=== PATIENT | male | born 2000 | race Caucasian/White ===

== ENCOUNTER 2021-01-07 12:45 | Emergency (ER) | payer OTHER, BC, SELFPAY ==
--- NOTE | ~2021-01-07 | XR_ITS ---
EXAMINATION: XR elbow RT min 3V DATE: 01/07/2021 13:28 INDICATION: Right elbow injury. TECHNIQUE: 4 views of right elbow were obtained. COMPARISON: None. FINDINGS: Bone alignment is normal. There is a nondisplaced fracture of the radial head involving the articular surface. Joint spaces are normal. There is a large elbow joint effusion. IMPRESSION: 1. Nondisplaced radial head fracture. 2. Large elbow joint effusion. Reviewed, dictated and finalized at location A. STANT SALES DIRECTOR
[2021-01-07 13:06] VITALS: BP 146/79; PULSE 98; RESP 18; TEMP 36.6; O2SAT 100
--- NOTE | 2021-01-07 14:51 | ED.GENADULT ---
HPI - General Adult General Chief complaint: Extremity Injury, Upper Stated complaint: right elbow injury Time Seen by Provider: 01/07/21 12:53 Source: patient Mode of arrival: ambulatory Limitations: no limitations History of Present Illness HPI narrative: Patient presents with chief complaint of right elbow pain that began last night after slipping on the ice while at work and hitting the elbow. Patient reports he has decreased range of motion but when the elbow is bent in a 90 degree position there is no pain or discomfort. Patient denies any pain proximally or distally to the elbow. Patient denies prior fracture. Patient denies any chronic medical conditions or medications. Related Data Allergies Allergy/AdvReac Type Severity Reaction Status Date / Time No Known Allergies Allergy Verified 08/22/19 06:50 Review of Systems Review of Systems: Narrative: CONSTITUTIONAL: Denies fever, chills, or sweats. EYES: Denies visual changes, redness, or discharge. ENT: Denies rhinorrhea, congestion, sore throat, or otalgia. CARDIOVASCULAR: Denies chest pain, palpitations, or edema. RESPIRATORY: Denies cough or dyspnea. GASTROINTESTINAL: Denies abdominal pain, nausea, vomiting, or diarrhea. GENITOURINARY: Denies dysuria or hematuria. SKIN: Denies rash or itching. MUSCULOSKELETAL: Denies back pain, joint pain, or myalgia. NEUROLOGIC: Denies headache, numbness, dizziness, or weakness. PSYCHIATRIC: Denies anxiety or depression. Exam Narrative: Exam Narrative: GENERAL: Well-appearing, well-nourished, and in no acute distress. HEAD: Normocephalic, atraumatic. EYES: PERRLA and EOMI. CHEST: Clear to auscultation. No respiratory distress. No wheezes rales or rhonchi HEART: Regular rate and rhythm. No murmur heard. Normal peripheral pulses. EXTREMITIES: Swelling noted to the right elbow. No ecchymosis noted. Tenderness with palpation to the radial aspect near the radial head. Patient reports decreased flexion and extension. Patient report comfort with 90 degree position SKIN: Warm, dry, no rash. NEURO: No focal deficits. Alert and oriented x3. PSYCH: Normal mood and affect. Course Vital Signs Vital signs: Vital Signs Temperature 98 F 01/07/21 13:06 Pulse Rate 98 01/07/21 13:06 Respiratory Rate 18 01/07/21 13:06 Blood Pressure 146/79 H 01/07/21 13:06 Pulse Oximetry 100 01/07/21 13:06 Temperature 98 F 01/07/21 13:06 Pulse Rate 98 01/07/21 13:06 Respiratory Rate 18 01/07/21 13:06 Blood Pressure 146/79 H 01/07/21 13:06 Pulse Oximetry 100 01/07/21 13:06 Procedures Orthopedic Splinting/Casting Injury #1: Side: right Upper Extremity Injury Location: elbow Splint: customized in ED OCL: long arm Pre-Procedure Neuro Vascular Exam: normal Post-Procedure Neuro Vascular Exam: normal Other Orthopedic Equipment: other (sling) Medical Decision Making MDM Narrative Medical decision making narrative: Patient has nondisplaced radial head fracture. Patient placed in long-arm splint. Patient instructed to follow-up with orthopedics. Patient is RICE instructions, Tylenol or Motrin Motrin for discomfort. Return to emergency department if he develops any emergent symptoms. Differential Diagnosis Differential Diagnosis: Fracture, sprain, strain Vital Signs Vital Signs: Vital Signs Temperature 98 F 01/07/21 13:06 Pulse Rate 98 01/07/21 13:06 Respiratory Rate 18 01/07/21 13:06 Blood Pressure 146/79 H 01/07/21 13:06 Pulse Oximetry 100 01/07/21 13:06 Temperature 98 F 01/07/21 13:06 Pulse Rate 98 01/07/21 13:06 Respiratory Rate 18 01/07/21 13:06 Blood Pressure 146/79 H 01/07/21 13:06 Pulse Oximetry 100 01/07/21 13:06 Imaging Data Radiologist's impression: ITS Impressions Elbow X-Ray 01/07/21 13:29 IMPRESSION: 1. Nondisplaced radial head fracture. 2. Large elbow joint effusion. Discharge Plan Discharge Clini
== END 2021-01-07 15:28 | disposition home or self-care (01) ==
PROVIDERS: Emergency Provider Emergency Medicine
DX: S52.124A Nondisplaced fracture of head of right radius, initial encounter for closed fracture (principal); W00.9XXA Unspecified fall due to ice and snow, initial encounter
CPT/HCPCS: 29105; 73080; 99284; A4565

== ENCOUNTER 2021-11-05 19:11 | Emergency (ER) | payer BC, SELFPAY ==
--- NOTE | ~2021-11-05 | CT_ITS ---
EXAMINATION: CT chest high resolution wo de DATE: 11/06/2021 02:21 INDICATION: Cough and shortness of breath TECHNIQUE: Computed tomography (CT) of the chest was performed without intravenous contrast. The dose -length product (DLP) was 362.78 mGy-cm. Automated exposure control and iterative reconstruction tech Everypostque were employed. COMPARISON: None FINDINGS: There are minimal dependent airspace opacities of the lower lobes. No pleural effusion or p neumothorax is identified. There is a small sliding hiatal hernia. No pathologically enlarged thoraci c lymph nodes are identified. The heart size is normal. Minimal bilateral gynecomastia is noted. Tria ngular soft tissue density in the anterior mediastinum is consistent with residual thymus. There is a 6.2 cm cyst of the right kidney upper pole. IMPRESSION: 1. Minimal dependent airspace opacities of the lower lobes, likely atelectasis. Early pneumonia of th e right lower lobe is not excluded. Reviewed, dictated and finalized at location A. LAR SET CREW MEMBER IMPRESSION: 1. Minimal dependent airspace opacities of the lower lobes, likely atelectasis. Early pneumonia of the right lower lobe is not excluded.
--- NOTE | ~2021-11-05 | XR_ITS ---
EXAMINATION: XR chest 1V portable EXAM DATE: 11/05/2021 23:37 INDICATION: Cough X 10 years, new onset shortness of breath. TECHNIQUE: Portable AP frontal chest x-ray was obtained. There is no prior study for comparison. FINDINGS: The lungs are clear. There are no pleural effusions. The cardiomediastinal silhouette is within normal limits. There is no pneumothorax suspected. The bones and soft tissues are unremarkab le. IMPRESSION: No acute cardiopulmonary findings. Reviewed, dictated and finalized at location A. ENDBAND CUTTER
[2021-11-05 19:33] VITALS: BP 132/73; PULSE 126; RESP 20; TEMP 37.3; O2SAT 99
[2021-11-05 23:39] VITALS: BP 137/89; PULSE 115; RESP 20; O2SAT 97; O2SAT 98
[2021-11-05] MEDS: SODIUM CHLORIDE 0.9% IV 1,000 ML 999 ML IV CONT (23:53)
[2021-11-06 00:24] LABS: Hematocrit 46.7 % (42.0-52.0); Hemoglobin 16.3 g/dL (14.0-18.0); Mean Corpuscular HGB Conc 34.9 g/dl (32-36); Mean Corpuscular Hemoglobin 29.6 pg (26-34); Mean Corpuscular Volume 84.9 fl (80-100); Mean Platelet Volume 9.8 fl (7.4-10.4); Platelet Count Result 319 k/mm3 (150-375); Red Cell Distribution Width 11.9 % (11.5-14.5); White Blood Count 24.9 K/mm3 (4.5-10.0)
--- NOTE | 2021-11-06 00:27 | ED.SOB ---
HPI - SOB/Dyspnea General Chief Complaint: Shortness of Breath/Dyspnea Stated Complaint: really bad cough . SOB. COVID + Time Seen by Provider: 11/05/21 23:27 Source: patient and RN notes reviewed Mode of arrival: ambulatory Limitations: no limitations History of Present Illness HPI Narrative: This is 20 year old female who presents for evaluation of shortness of breath. Patient developed symptoms of COVID 1 week ago and he took an at home test which was positive. He started with sinus congestion, cough, headache. His headache and sinus congestion have resolved. He has continued to have nonproductive cough, and he developed shortness of breath today. He has also noticed an elevated heart rate. He only has chest pain with cough. He has had some nausea and intermittent vomiting. Denies fever or chills. He received first 2 episodes of covid vaccination earlier in the year but has not received booster. Denies previous medical problems. Related Data Allergies Allergy/AdvReac Type Severity Reaction Status Date / Time No Known Allergies Allergy Verified 11/05/21 23:42 Review of Systems Review of Systems: All systems reviewed & are unremarkable except as noted in HPI and below PMFSH Past Medical History Medical History Chills Common cold Fever Family History Family History (Updated 01/09/21 @ 11:28 by Maegan Basurto RT(R)) Other Kidney stone Social History Social History (Updated 01/09/21 @ 11:29 by Maegan Basurto RT(R)) Smoking status: Never smoker Alcohol intake: never Substance use: never Substance use type: does not use Gender identity (if verbalized by the patient): Male Exam Const: General: no acute distress and alert Orientation/consciousness: patient oriented x3 HENMT: Head: normocephalic and atraumatic Ears: TM's normal bilaterally Throat: posterior oropharynx normal Eyes: EOM: EOMs intact bilaterally Resp: Effort & Inspection: normal respiratory effort and no retractions Auscultation: clear to auscultation bilaterally Cardio: Rate: tachycardic Rhythm: regular rhythm Heart sounds: no murmurs GI: GI Palp: Yes Soft to palpation, No Tenderness to palpation present (GI) and No Guarding due to palpation present (GI) Auscultation: normal bowel sounds Skin: General skin exam: normal color Rashes: no rashes Neuro: General: patient oriented x3, moves all extremities and CN's II-XI intact bilaterally Psych: Mental Status: mental status grossly normal Affect: normal affect Course Reevaluation(s) Reevaluation #1: PAtient actually appears to be much improved. HR improved. he does have leukocytosis. CT shows some basilar infiltrates. Will treat as infectious. He will follow up with PCP regarding right renal cyst. Date: 11/06/21 Time: 04:11 Vital Signs Vital signs: Vital Signs Temperature 99.1 F 11/05/21 19:33 Pulse Rate 126 H 11/05/21 19:33 Respiratory Rate 20 11/05/21 19:33 Blood Pressure 132/73 11/05/21 19:33 Pulse Oximetry 99 11/05/21 19:33 Temperature 99.1 F 11/05/21 19:33 Pulse Rate 90 11/06/21 04:56 Respiratory Rate 20 11/06/21 04:56 Blood Pressure 123/69 11/06/21 04:56 Pulse Oximetry 97 11/06/21 04:56 MDM - SOB/Dyspnea Lab Data Attestation: I reviewed the patient's lab results. Result diagrams: 11/05/21 23:52 11/06/21 00:53 Labs: Lab Results 11/05/21 11/05/21 11/05/21 Range/Units 23:52 23:52 23:52 WBC 24.9 H (4.5-10.0) K/mm3 RBC 5.50 (4.6-6.20) M/mm3 Hgb 16.3 (14.0-18.0) g/dL Hct 46.7 (42.0-52.0) % MCV 84.9 (80-100) fl MCH 29.6 (26-34) pg MCHC 34.9 (32-36) g/dl RDW 11.9 (11.5-14.5) % Plt Count 319 (150-375) k/mm3 MPV 9.8 (7.4-10.4) fl Immature Gran % (Auto) Not Reportable Neut % (Auto) Not Reportable Lymph % (Auto) Not Reportable [place] % (Auto) Not
[2021-11-06 00:36] LABS: Lactic Acid Reflex 2.9 mmol/L (0.7-2.1)
[2021-11-06 00:37] LABS: Partial Thromboplastin Time 26.9 SECONDS (22.3-36.8); Prothrombin Time 12.9 Seconds (11.1-14.7)
[2021-11-06 01:01] LABS: Atypical Lymphocytes Present; Band Neutrophils Percent 7 % (0-6); Lymphocytes Absolute Manual 1.24 K/mm3 (1.1-4.5); Monocytes Absolute Manual 0.99 K/mm3 (0.1-0.90); Monocytes Percent Manual 4 % (3-9); Neutrophils Absolute Manual 22.65 K/mm3 (1.3-6.7); Neutrophils Percent Manual 84 % (46-73); Platelet Estimate Adequate (Adequate); Total Cells Counted 100
[2021-11-06 01:36] LABS: Alanine Aminotransferase 34 U/L (4-50); Alkaline Phosphatase 49 U/L (38-126); Anion Gap 9 mmol/L (8-16); Aspartate Amino Transferase 25 U/L (17-59); Bilirubin,Total 0.9 mg/dL (0.2-1.3); Blood Urea Nitrogen 13 mg/dL (9-20); Calcium 8.7 mg/dL (8.4-10.2); Carbon Dioxide 25 mmol/L (22-30); Chloride 103 mmol/L (98-107); Estimated CRCL calculation 135 ml/min; Estimated Glomerular Filt Rate > 60; Glucose 107 mg/dL (65-110); Potassium 4.1 mmol/L (3.4-5.0); Sodium 137 mmol/L (137-145)
[2021-11-06 01:39] LABS: D Dimer < 0.22 ug/mL (<0.48)
[2021-11-06 01:54] VITALS: BP 125/78; PULSE 81; RESP 20; O2SAT 97
[2021-11-06 03:22] LABS: Reflex Lactic Acid Yes or No Add Lactic
[2021-11-06] MEDS: SODIUM CHLORIDE 0.9% IV 1,000 ML 999 ML IV CONT (03:39)
[2021-11-06 03:48] LABS: Add Urine Microscopic? NO; Appearance Urine Clear (Clear); Bilirubin Urine Negative (Negative); Blood Urine Negative (Negative); Color Urine Yellow (Yellow); Glucose Urine UA Negative (Negative); Ketones Urine Negative (Negative); Leukocyte Esterase Ur Negative LEU/UL (Negative); Nitrate Urine Negative (Negative); Protein Urine Negative (Negative); Specific Grav Ur 1.009 (1.001-1.035); Urobilinogen Urine Negative mg/dL (<2.0)
[2021-11-06 04:11] LABS: Troponin I < 0.012 ng/mL (0.000-0.034)
[2021-11-06 04:18] LABS: Lactic Acid 1.6 mmol/L (0.7-2.1)
[2021-11-06] MEDS: DOXYCYCLINE HYCLATE 100 MG TABLET PO (04:21)
[2021-11-06 04:23] VITALS: BP 128/76; PULSE 102; RESP 20; O2SAT 97
[2021-11-06 04:56] VITALS: BP 123/69; PULSE 90; RESP 20; O2SAT 97
== END 2021-11-06 04:58 | disposition home or self-care (01) ==
PROVIDERS: Emergency Provider General Practice; PCP Internal Medicine
DX: U07.1 COVID-19 (principal); J18.9 Pneumonia, unspecified organism; N28.1 Cyst of kidney, acquired
CPT/HCPCS: 36415; 71045; 71250; 80053; 81003; 83605; 84484; 85025; 85380; 85610; 85730; 86140; 96361; 96365; 99284; A9270; J0696; J7030

== ENCOUNTER 2025-02-01 18:20 | Emergency (ER) | payer OTHER, SELFPAY ==
--- NOTE | ~2025-02-01 | CT_ITS ---
CLINICAL INDICATION: Left lower quadrant pain COMPARISON: None. Reference is made to a CT examination of the chest dated 11/06/2021 TECHNIQUE: Multiple contiguous axial images of the abdomen and pelvis were performed following the ad ministration of with 100 mL Omnipaque-350 intravenous contrast The dose-length product (DLP) was 1635.99 mGy-cm. Automated exposure control and iterative reconstruction technique were employed. FINDINGS/OBSERVATIONS: Visualized lower thorax: The bilateral lung bases are clear. The heart is enlarged, without pericardial effusion. Small hiatal hernia is present. Liver: The liver demonstrates homogeneous enhancement and is enlarged measuring 20 cm in longitudinal dimens ion. Gallbladder and biliary system: The gallbladder is only minimally distended, and otherwise unremarkable. Pancreas: The pancreas enhances homogeneously without ductal dilatation. Spleen: The spleen enhances homogeneously and is not enlarged measuring 8 cm in longitudinal dimension. Kidneys: 6.5 cm well-circumscribed fluid attenuation focus exophytic from the right kidney's upper po le, unchanged from [address] 5 mm calculus within the lower pole of the left kidney. The remainder of the bilateral kidneys otherwise enhance symmetrically without hydronephrosis or anay tional renal calculi. Adrenal glands: Unremarkable. Gastrointestinal tract: Mural thickening and surrounding inflammatory changes identified within the distal mall bowel which a buts the left lateral rectus muscle in its descent into the pelvis, likely the source of patient's di scomfort. No bowel obstruction is appreciated. No drainable fluid collection is noted. No perforation is present. Appendix: The air-filled appendix is of normal caliber (axial series, images 133 through 149). Vasculature: Unremarkable. Lymph nodes: Scattered nonpathologically enlarged lymph nodes within the mesentery, a nonspecific finding in a pat ient of this age. Pelvic structures: The bladder is minimally distended, and otherwise unremarkable. The prostate gland is not enlarged. Body wall and musculoskeletal: No umbilical or inguinal hernias No significant degenerative disease within the lower thoracic or lumbosacral spine. IMPRESSION: Findings which in the appropriate clinical scenario suggest the presence of inflammatory bowel diseas e, versus a focal enteritis. Follow-up to resolution is recommended as is GI consultation. Reviewed, dictated and finalized at location A. ATIENT SCHEDULER IMPRESSION: Findings which in the appropriate clinical scenario suggest the presence of inf lammatory bowel disease, versus a focal enteritis. Follow-up to resolution is r ecommended as is GI consultation.
--- OUTSIDE RECORDS SUMMARY | 2025-02-01 18:22 | XMS_ITS | Clinical Summary ---
Author Organization [facility] Address [address] [place] [address] Care Team Providers Care Water Resource Consultant Name Role Phone Unavailable Primary Care Provider Unavailabl e Source Comments [facility],non-owned Affiliates and Associated Physician Practices is amultiple site organization consisting of ambulatory clinics and hospital sitesin [place], [place], [place] and [place]. This disclosure is being madepursuant to the Care Everywhere program and may not contain all information available regarding this patient. Last updated 18.[facility] Allergies No known active allergies Medications * Be aware that medications may not be up to date on this document. Alwaysverify current medications with the patient. Medication Sig Dispensed Refills Start Date End Date Status fluticasone propionate (FLONASE) 50 MCG/ACT nasal spray [place] 2 sprays into each nostril once daily 1 bottles 1 05/12/2018 Active benzonatate (TESSALON) 200 MG capsuleIndications:C ough Take 1 capsule by mouth 3 times daily as needed for Cough Reasons: Cough 20 capsule 05/12/2018 Active Active Problems Problem Noted Date Diagnosed Date BMI (body mass index), pedia tric, 85% to less than 95% for age 1211/19/2014 Immunizations Name Administration Dates Next Due DTaP VACCINE IM (6wk-6yrs) 03/03/2006,,06/12/2001,04/11/2001, 02/09/2001 HEP A PEDS 2 DOSE 05/04/2012,03/03/2006 HEP B VACCINE, PED/ADOL 09/12/2001,01/12/2001, HIB BOOSTER 06/11/2002,06/12/2001,04/11/2001 ,02/09/2001 INFLUENZA VACCINE 09/19/2008 MENINGOCOCCAL CONJUGATE (MCV4P) 05/02/2018,06/11 MMR 03/03/2006,12/12/2001 PNEUMOCOCCAL CONJ, PEDS 06/11/2002,06/12/2001,,02/09/2001 POLIO IPV 03/03/2006,03/12/2002,04/11/2001 ,02/09/2001 TDAP (7yrs+) 05/04/2012 VARICELLA 05/04/2012,03/12/2002 Family History Medical History Relation Name Comments Hypercholesterolemia Mother Relation Name Status Comments Mother Social History Tobacco Use Types Packs/Day Years Used Date Smoking Tobacco: Never Smokeless Tobacco: Never Alcohol Use Standard Drinks/Week Comments Not Asked 0 (1 standard drink = 0.6 oz pur e alcohol) Sex and Gender Information Value Date Recorded Sex Assigned at Not on file Gender Identity Not on file Sexual Orientation Not on file Last Filed Vital Signs Vital Sign Reading Time Taken Comments Blood Pressure 114/64 06/11/2015 8:57 AM CDT Pulse 68 06/11/2015 8:57 AM CDT Temperature 36.9 C (98.5 F) 12/29/2018 3:53 PM CHILD AND YOUTH PROGRAM ASSISTANT Respiratory Rate - - Oxygen Saturation - - Inhaled Oxygen Concentration - - Weight 85.7 kg (189 lb) 12/29/2018 3:53 PM CHILD AND YOUTH PROGRAM ASSISTANT Height 184.2 cm (6' 0.5 ) 05/02/2018 3:35 PM CDT Body Mass Index - - Plan of Treatment Health Maintenance Due Date Last Done Comments HIV SCREENING 2015 HPV VACCINE (1 - Male 3-dose series) 2015 HEPATITIS C SCREENING 12/07/2018 DTAP/TDAP/TD VACCINES (7 - Td or Tdap) 05/04/2022 05/04/2012, 03/03/2006, 06/11/2002, Additional history exists COVID-19 VACCINE ( season) 2024 INFLUENZA VACCINE (#1) 2024 09/19/2008 DEPRESSION SCREENING 11/28/2024 ZOSTER VACCINE (1 of 2) 2050 HEPATITIS B VACCINE Completed 09/12/2001, 01/12/2001, 2000 HIB VACCINE Completed 06/11/2002, 05/28, 04/11/2001, Additional history exists PNEUMOCOCCAL VACCINE Completed 06/11/2002, 06/12/2001, 04/11/2001, Additional history exists MENINGOCOCCAL VACCINE Completed 05/02/2018, 015 MENINGOCOCCAL (Group B) VACCINE Aged Out No longer eligible based on patient's age to complete this topic Goals Goal Patient Goal Type Associated Problems Recent Progress Patient-Stated? Author Exercise 3X per week (30 min per time) Exercise On track( 3:53 PM CHILD AND YOUTH PROGRAM ASSISTANT) No Heidy Ernst RN Note: Caring for Your Overweight Child Get Moving: It is recommended that children and teens get physical activity for at least 1 hour per day on most (or better yet, all) days of the week. That may sound like a lot, especially if your child is not getting any physical activity now. But physical activity means more than exercise. It can mean playing games in the backyard, or washing the car. It can mean picking up leaves, or walking the dog. Add the healthy habit of physical activity to your family s schedule. When children take off weight through dieting alone, 80 percent of the loss is from fatty tissue and 20 percent is from muscle. Adding weight-resistance training to an exercise routine preserves the muscle tissue. Virtually every ounce dropped comes from fat. Once an adolescent meets his goal, regular exercise is essential for maintaining the desired weight. Where can I go for more information? [employer] ( ) www.aap.org HealthyChildren.org www.healthychildren.org U.S. Department of Health and Human Services www.hhs.gov Website and free downloadable michelle for smartphones: http://www.True&Co/ Use safety retraint in car Lifestyle On track( 3:53 PM CHILD AND YOUTH PROGRAM ASSISTANT) Mayi Leija MD SALAS MONTEMAYOR Personal/Family [address] [place] [id number]
--- OUTSIDE RECORDS SUMMARY | 2025-02-01 18:22 | XMS_ITS | Patient Health Summary ---
Author Organization [facility] Address [address] [place] [address] Care Team Providers Care Chief Diversity Officer Name Role Phone Unavailable Primary Care Provider Unavailabl e Note from [facility],non-owned Affiliates and Associated Physician Practices is amultiple site organization consisting of ambulatory clinics and hospital sitesin [place], [place], [place] and [place]. This disclosure is being madepursuant to the Care Everywhere program and may not contain all information available regarding this patient. Last updated 18.[facility] [employer] Allergies No known active allergies Medications * Be aware that medications may not be up to date on this document. Alwaysverify current medications with the patient. * fluticasone propionate (FLONASE) 50 MCG/ACT nasal spray(Started 05/12/2018) [place] 2 sprays into each nostril once daily 1 refill remaining * benzonatate (TESSALON) 200 MG capsule(Started 05/12/2018) Take 1 capsule by mouth 3 times daily as needed for Cough Reasons: Cough Active Problems Problem Noted Date Diagnosed Date BMI (body mass index), pedia tric, 85% to less than 95% for age 1211/19/2014 Immunizations * DTaP VACCINE IM (6wk-6yrs)(Given 03/03/2006, 06/11/2002, 06/12/2001, 04/11/2001, 02/09/2001) * HEP A PEDS 2 DOSE(Given 05/04/2012, 03/03/2006) * HEP B VACCINE, PED/ADOL(Given 09/12/2001, 01/12/2001, 2000) * HIB BOOSTER(Given 06/11/2002, 06/12/2001, 04/11/2001, 02/09/2001) * INFLUENZA VACCINE(Given 09/19/2008) * MENINGOCOCCAL CONJUGATE (MCV4P)(Given 05/02/2018, 06/11/2015) * MMR(Given 03/03/2006, 12/12/2001) * PNEUMOCOCCAL CONJ, PEDS(Given 06/11/2002, 06/12/2001, 04/11/2001, 02/09/2001) * POLIO IPV(Given 03/03/2006, 03/12/2002, 04/11/2001, 02/09/2001) * TDAP (7yrs+)(Given 05/04/2012) * VARICELLA(Given 05/04/2012, 03/12/2002) Social History Tobacco Use Types Packs/Day Years [...] 36.9 C (98.5 F) 12/29/2018 3:53 PM ASSOCIATE BROKER Respiratory Rate - - Oxygen Saturation - - Inhaled Oxygen Concentration - - Weight 85.7 kg (189 lb) 12/29/2018 3:53 PM ASSOCIATE BROKER Height 184.2 cm (6' 0.5 ) 05/02/2018 3:35 PM CDT Body Mass Index - - Procedures * IMAGING/RADIOLOGY/XRAY RESULTS ORDER(Performed 11/05/2021) * LAB RESULTS ORDER(Performed 11/05/2021) * GLUCOSE(Performed 06/11/2015) Performed for BMI (body mass index), pediatric, 95-99% for age * LIPID PROFILE(Performed 06/11/2015) Performed for BMI (body mass index), pediatric, 95-99% for age * TSH(Performed 01/09/2009) * T4 FREE(Performed 01/09/2009) Results * LAB RESULTS ORDER (11/05/2021) 11/05/2021 Narrative 11/05/2021 Ordered by an unspecified provider. Scanned Document LAB - THERAPEUTIC DR UG MONITORING ORDERABLES * IMAGING RADIOLOGY XRAY RESULTS ORDER (11/05/2021) Anatomical Region Laterality Modality Other 11/05/2021 Narrative 11/05/2021 Ordered by an unspecified provider. Scanned Document IMAGING * GLUCOSE (06/11/2015 9:42 AM CDT) Glucose 97 65 - 99 mg/dL [facility] Comment: Fasting reference interval REPORT COMMENT: FASTING:YES Test Performed at: [facility] [place] [id number] MONIQUE ANDRADE DO,MPH Blood specimen (specimen) BLOOD SPECIMEN / Unknown 06/11/2015 9:42 AM CDT 06/11/2015 9:42 AM CDT Mayi Tellez MD LAB - CHEMISTRY MICHAEL BROTHERS [facility] Organization Address City/State/ZIP Co de Phone Number [facility] [address] [place] [address] * LIPID PROFILE (LIPID PANEL) (06/11/2015 9:42 AM CDT) Cholesterol 144 125 - 170 mg/dL [facility] Comment: Test Performed at: [place] [address] [id number] MONIQUE ANDRADE DO,MPH HDL Cholesterol 46 38 - 76 mg/dL [facility] Triglycerides 49 33 - 129 mg/dL [facility] LDL Calculated 88 <110 mg/dL (calc) [facility] Comment: Desirable range <100 mg/dL for patients with CHD or diabetes and <70 mg/dL for diabetic patients with known heart disease. CHOL/HDLC RATIO 3.1 < OR = 5.0 (calc) [facility] Non HDL Cholesterol 98 <120 mg/dL (calc) [facility] Blood specimen (specimen) BLOOD SPECIMEN / Unknown 06/11/2015 9:42 AM CDT 06/11/2015 9:42 AM CDT Mayi Tellez MD LAB - CHEMISTRY MICAHEL BROTHERS Performing Organization Address [facility] Co de Phone Number [facility] [address] [place] [address] * TSH (01/09/2009 10:41 AM ASSOCIATE BROKER) TSH 1.22 0.50 - 4.30 mIU/L [facility] Comment: Test Performed at: [email or web address] [id number] MONIQUE MISTRY MD 01/09/2009 10:4 1 AM ASSOCIATE BROKER 01/09/2009 10:06 PM ASSOCIATE BROKER Mayi Tellez MD LAB - CHEMISTRY MICHAEL BROTHERS Performing Organization Address [facility] Co de Phone Number [facility] [address] [place] [address] * T4 FREE (01/09/2009 10:41 AM ASSOCIATE BROKER) T4 Free 1.3 0.9 - 1.6 ng/dL [facility] Comment: Test Performed at: [facility] [place] [id number] MONIQUE MISTRY MD 01/09/2009 10:4 1 AM ASSOCIATE BROKER 01/09/2009 10:06 PM ASSOCIATE BROKER Mayi Tellez MD LAB - CHEMISTRY MICHAEL BROTHERS Performing Organization Address [facility] Co de Phone Number [facility] [address] [place] [address]
--- OUTSIDE RECORDS SUMMARY | 2025-02-01 18:22 | XMS_ITS | Clinical Summary ---
Author Organization [facility] Address [facility] [place] [address] Care Team Providers Care Auto Winder Name Role Phone Matt Bethea MD Primary Care Provider [phone] Allergies No known active allergies Medications albuterol sulfate HFA 108 (90 Base) MCG/ACT inhaler FOUR TIMES DAILY 11/06/2021 Active doxycycline hyclate 100 MG capsule Take 100 mg by mouth 2 (two) times daily. Active Active Problems No known active problems Immunizations Name Administration Dates Next Due Dtap (Acel-Immune) 03/03/2006,,06/12/2001,2000,02/09/2001 Hepatitis A (Havrix [address]) 05/04/2012, 006 Hepatitis B Pediatric 09/12/2001,01/12/2001,11/28 Hib (Prohibit) 06/11/2002,,04/11/2001,2000 Influenza (Generic) 09/19/2008 MMR (MMRII) 03/03/2006,12/12/2001 MODERNA COVID-19 (12+) MRNA, LNP-S, PF, 100 MCG/ 0.5 ML DOSE 2020 Menactra 05/02/2018,06/11/2015 Pneumococcal Vaccine 06/11/2002,06/12/20,04/11/2001,2000 Polio IPV (Ipol) 03/03/2006,,04/11/2001,2000 Tdap (Generic) 05/04/2012 Varicella (Varivax) 05/04/2012,03/12/2002 Social History Tobacco Use Types Packs/Day Years Used Date Smoking Tobacco: Never Smokeless Tobacco: Never Tobacco Cessation:Counseling Given: No Alcohol Use Standard Drinks/Week Comments Never 0 (1 standard drink = 0.6 oz pur e alcohol) AUDIT-C Answer Date Recorded Q1: How often do you have a drink containing alc ohol? Never 03/10/2021 Average Number of Drinks Not on file 021 Frequency of Binge Drinking Not on file 02/26 PHQ-2 Answer Date Recorded PHQ-2 Score - If the patient scores above 3, please move on to questions 3-9 0 03/10/2021 Sex and Gender Information Value Date Recorded Sex Assigned at Not on file Legal Sex Male 1:05 PM ADMINISTRATIVE ASSISTANT RECEPTIONIST Gender Identity Not on file Sexual Orientation Not on file Last Filed Vital Signs Vital Sign Reading Time Taken Comments Blood Pressure 124/76 11/16/2021 1:35 PM ADMINISTRATIVE ASSISTANT RECEPTIONIST Pulse 70 11/16/2021 1:35 PM ADMINISTRATIVE ASSISTANT RECEPTIONIST Temperature 36.9 C (98.4 F) 11/16/2021 1:35 PM ADMINISTRATIVE ASSISTANT RECEPTIONIST Respiratory Rate 16 11/16/2021 1:35 PM ADMINISTRATIVE ASSISTANT RECEPTIONIST Oxygen Saturation 98% 11/16/2021 1:35 PM ADMINISTRATIVE ASSISTANT RECEPTIONIST Inhaled Oxygen Concentration - - Weight 115.2 kg (254 lb) 11/16/2021 1:35 PM ADMINISTRATIVE ASSISTANT RECEPTIONIST Height 185.4 cm (6' 1 ) 11/16/2021 1:35 PM ADMINISTRATIVE ASSISTANT RECEPTIONIST Body Mass Index 33.51 11/16/2021 1:35 PM ADMINISTRATIVE ASSISTANT RECEPTIONIST Plan of Treatment Health Maintenance Due Date Last Done Comments HPV Vaccines (1 - Male 3-dose series) 2015 Hepatitis C 2018 Annual Physical 03/10/2022 03/10/2021 DTaP, Tdap and Td Vaccines (7 - Td or Tdap) 05/04/2022 05/04/2012, 03/03/2006, 06/11/2002, Additional history exists COVID-19 Vaccine (3 - season) 2024 04/10/2021, 2020 Influenza Adult (#1) 2024 09/19/2008 PHQ-2 (Physician [place]) 11/28/2024 Hepatitis B Vaccines Completed 09/12/2001, 01/12/2001, 2000 Pneumococcal Vaccine: Pediatrics (0 to 5 Years) and At-Risk Patients (6 to 64 Years) Aged Out 06/11/2002, 06/12/2001, 04/11/2001, Additional history exists No longer eligible based on patient's age to complete this topic Meningococcal Vaccine Completed 05/02/2018, 015 Meningococcal B Vaccine Aged Out No l onger eligible based on patient's age to complete this topic RSV Immunizations Under 20 Months Aged Out No longer eligible based on patient's age to complete this topic Insurance Care Teams Auto Winder Relationship Specialty Start Date End Date Matt Bethea MD [address] [place] [id number] PCP - General INTERNAL MEDICINE 03/10/21
--- OUTSIDE RECORDS SUMMARY | 2025-02-01 18:22 | XMS_ITS | Referral Summary ---
Author Organization [facility] Address [address] [place] [address] Care Team Providers Care Toaster Operator Name Role Phone Unavailable Primary Care Provider Unavailabl e Source Comments [facility],non-owned Affiliates and Associated Physician Practices is amultiple site organization consisting of ambulatory clinics and hospital sitesin [place], [place], [place] and [place]. This disclosure is being madepursuant to the Care Everywhere program and may not contain all information available regarding this patient. Last updated 18.[facility] Allergies No known active allergies Medications * Be aware that medications may not be up to date on this document. Alwaysverify current medications with the patient. Medication Sig Dispensed Refills Start Date End Date Status fluticasone propionate (FLONASE) 50 MCG/ACT nasal spray [place] 2 sprays into each nostril once daily [...] 03/03/2006,03/12/2002,04/11/2001 ,02/09/2001 TDAP (7yrs+) 05/04/2012 VARICELLA 05/04/2012,03/12/2002 Social History Tobacco Use Types Packs/Day [...] 36.9 C (98.5 F) 12/29/2018 3:53 PM INFORMATICS CONSULTANT Respiratory Rate - - Oxygen Saturation - - Inhaled Oxygen Concentration - - Weight 85.7 kg (189 lb) 12/29/2018 3:53 PM INFORMATICS CONSULTANT Height 184.2 cm (6' 0.5 ) 05/02/2018 3:35 PM CDT Body Mass Index - - Plan of Treatment Not on file Goals Goal Patient Goal Type Associated Problems Recent Progress Patient-Stated? Author Exercise 3X per week (30 min per time) Exercise On track( 019 3:53 PM INFORMATICS CONSULTANT) Heidy Champion, RN Note: Caring for Your Overweight Child [...] Where can I go for more information? [place] [employer] ( ) www.aap.org HealthyChildren.org www.healthychildren.org U.S. Department of Health and Human Services www.hhs.gov Website and free downloadable michelle for smartphones: http://www.GINKGOTREE/ Use safety retraint in car Lifestyle On track( 019 3:53 PM INFORMATICS CONSULTANT) No Mayi Tellez MD Administered Medications [facility]ONTEMAYOR Personal/Family [address] [place] [address] [place] [address]
--- OUTSIDE RECORDS SUMMARY | 2025-02-01 18:22 | XMS_ITS | Patient Health Record ---
Author Organization [facility] Address [address] [place], [place] [address] Care Team Providers Care Sighter Name Role Phone BHARAT MCCORMICK Unavailable [phone] Matt Bethea Unavailable Unavailable Allergies No Known Allergies Reason For Referral No Information Social History Tobacco Use: Social History Observation Description Date Details (start date - stop date) Never Smoker NA - NA Tobacco Use/Smoking Question Answer Notes Tobacco use: nonsmoker Plan Of Treatment No Information Insurance Providers Payer Name Payer Address Payer Phone Subscriber Number Group Number Insured Name Patient Relationship to Insured Coverage Start Date Coverage End Date [employer] [facility] [address] [address] [place], [place] [id number] CEZAR BELLO Self - patient is the insured Medical (General) History Medical History History ICD Code acid reflux GERD
[2025-02-01 18:37] VITALS: BP 149/95; PULSE 78; RESP 16; TEMP 36.4; O2SAT 100
--- NOTE | 2025-02-01 18:45 | ED_ITS ---
HPI - Abdominal Pain General Chief Complaint: Abdominal Pain <Rubia MakJossy Lerner APRN - Last Filed: 02/01/25 18:47> Stated Complaint: abd pain x3d <Rubialee ann Lerner APRN - Last Filed: 02/01/25 18:47> Time Seen by Provider: 02/01/25 18:30 <Rubia MakJossy Lerner APRN - Last Filed: 02/01/25 18:47> Focused HPI: Patient is a 24-year-old male who presents to the ER with left lower quadrant pain. He reports the pain started earlier today. Patient denies any nausea vomiting or diarrhea. His last bowel movement this morning it is he normal for him. Patient denies any medical history related to his ER visit. He denies chest pain, shortness of breath, recent fevers, urinary symptoms, or back pain. GENERAL: Well-appearing, well-nourished, and in no acute distress. HEAD: Normocephalic, atraumatic. CHEST: Clear to auscultation. ?No respiratory distress. HEART: Regular rate and rhythm.? NEURO: ?Alert and oriented x3. Patient screened in triage and initial orders placed.? ?Additional care and disposition to be based upon?diagnostic testing and treatment. <Rubia MakJossy Lerner APRN - Last Filed: 02/01/25 18:47> Focused HPI: Patient is a 24-year-old male who presents to the ER with left lower quadrant pain. He reports the pain started earlier today. Patient denies any nausea vomiting or diarrhea. His last bowel movement this morning it is he normal for him. Patient denies any medical history related to his ER visit. He denies chest pain, shortness of breath, recent fevers, urinary symptoms, or back pain. GENERAL: Well-appearing, well-nourished, and in no acute distress. HEAD: Normocephalic, atraumatic. CHEST: Clear to auscultation. ?No respiratory distress. HEART: Regular rate and rhythm.? NEURO: ?Alert and oriented x3. Patient screened in triage and initial orders placed.? ?Additional care and disposition to be based upon?diagnostic testing and treatment. <Pretty Ayala PA-C - Last Filed: 02/02/25 02:26> Source: patient <Pretty Ayala PA-C - Last Filed: 02/02/25 02:26> Mode of arrival: ambulatory <Pretty Ayala PA-C - Last Filed: 02/02/25 02:26> Limitations: no limitations <Pretty Ayala PA-C - Last Filed: 02/02/25 02:26> History of Present Illness HPI narrative: Upon my evaluation, patient reports that pain has been intermittent for the last couple of days. Worse with movement, walking, laughing. Has not taken anything for pain. Reports he has been feeling constipated over the last couple of days. Has been taking MiraLax without improvement. Has had very small bowel movements over the last couple of days, which is not normal for him. He denies rectal bleeding or melena. Does note that he changed his diet completely this week trying to lose weight. Denies previous history of abdominal issues. < Pretty Ayala PA-C - Last Filed: 02/02/25 02:26> Related Data Allergies/Adverse Reactions: Allergies Allergy/AdvReac Type Severity Reaction Status Date / Time No Known Allergies Allergy Verified 02/01/25 18:23 <Rubia Lerner APRN - Last Filed: 02/01/25 18:47> Review of Systems 2 Review of Systems: All systems reviewed & are unremarkable except as noted in HPI. <Pretty Ayala PA-C - Last Filed: 02/02/25 02:26> All systems reviewed & are unremarkable except as noted in HPI and below < Pretty Ayala PA-C - Last Filed: 02/02/25 02:26> [facility] Past Medical History Medical History: Medical History Common cold Chills Fever <Rubia Lerner APRN - Last Filed: 02/01/25 18:47> Family History Family History: Family History Other Kidney stone <Rubia Lerner APRN - Last Filed: 02/01/25 18:47> Social History Social History: Social History Smoking status: Never smoker Alcohol intake: never Substance use: never Substance use type: does not use Gender identity (if verbalized by the patient): Male <Rubia Lerner, BILLING REPRESENTATIVE - Last Filed: 02/01/25 18:47> Exam 2 Narrative: GENERAL: Well appearing, obese with BMI of 35.0, non-toxic, in no acute distress. HEAD: Normocephalic, atraumatic. RESPIRATORY: Airway patent, respirations nonlabored. Clear to auscultation bilaterally, no rales, rhonchi, wheezing. CARDIOVASCULAR: Regular rate and rhythm ABDOMINAL: Soft, tenderness to palpation in left mid to lower abdomen. No rebound. Nondistended. Normoactive BS. MUSCULOSKELETAL: Moves all extremities. No gross deformities. SKIN: Warm, dry, normal color. NEURO: A&O X3. Speech clear. PSYCHIATRIC: Appropriate mood and affect. Normal interaction. <Pretty Ayala PA-C - Last Filed: 02/02/25 02:26> Course Vital Signs Vital signs: Vital Signs Temperature 97.6 F 02/01/25 18:37 Pulse Rate 78 02/01/25 18:37 Respiratory Rate 16 02/01/25 18:37 Blood Pressure 149/95 H 02/01/25 18:37 Pulse Oximetry 100 02/01/25 18:37 Temperature 97.6 F 02/01/25 18:37 Pulse Rate 69 02/02/25 02:04 Respiratory Rate 18 02/02/25 02:04 Blood Pressure 141/86 H 02/02/25 02:04 Pulse Oximetry 99 02/02/25 02:04 <Rubia Lerner, BILLING REPRESENTATIVE - Last Filed: 02/01/25 18:47> Vital Signs Temperature 97.6 F 02/01/25 18:37 Pulse Rate 78 02/01/25 18:37 Respiratory Rate 16 02/01/25 18:37 Blood Pressure 149/95 H 02/01/25 18:37 Pulse Oximetry 100 02/01/25 18:37 Temperature 97.6 F 02/01/25 18:37 Pulse Rate 69 02/02/25 02:04 Respiratory Rate 18 02/02/25 02:04 Blood Pressure 141/86 H 02/02/25 02:04 Pulse Oximetry 99 02/02/25 02:04 <Pretty Ayala PA-C - Last Filed: 02/02/25 02:26> MDM - Abdominal Pain MDM Narrative Medical decision making narrative: Patient presented to ED with several day history of left lower abdominal pain. Reporting recent constipation. Vital signs stable. Patient is in no acute distress. Laboratory studies are unremarkable. No leukocytosis. Stable electrolytes. Normal LFTs and lipase. CT scan of abdomen/pelvis was obtained and showing possible findings consistent with inflammatory bowel disease versus a focal enteritis. Shows area of inflammatory T and the distal small bowel which abuts to the left lateral rectus muscle. Consistent with patient's pain. Discussed lab and imaging findings with patient. He has not required any pain medication throughout the ED. remains hemodynamically stable. He denies any previous history of abdominal issues or issues with frequent constipation or pain. Based on this, I am less suspicious for inflammatory bowel disease presenting today. Will refer to GI for further evaluation as needed. Discussed continue management of constipation as needed. Discussed strict return precautions. Patient in agreement with plan. He feels comfortable discharge home. Discharged in stable condition. <Pretty Ayala PA-C - Last Filed: 02/02/25 02:26> Medical Records Attestation: I reviewed the patient's medical records. <Pretty Ayala PA-C - Last Filed: 02/02/25 02:26> Lab Data Attestation: I reviewed the patient's lab results. <Pretty Ayala PA-C - Last Filed: 02/02/25 02:26> Result diagrams: 02/01/25 20:48 02/01/25 20:48 <Rubia Lerner APRN - Last Filed: 02/01/25 18:47> Labs: Lab Results 02/01/25 Range/Units 20:48 WBC 9.2 (4.5-10.0) K/mm3 RBC 5.38 (4.6-6.20) M/mm3 Hgb 15.7 (14.0-18.0) g/dL Hct 45.8 (42.0-52.0) % MCV 85.1 (80-100) fl MCH 29.2 (26-34) pg MCHC 34.3 (32-36) g/dl RDW 12.9 (11.5-14.5) % Plt Count 312 (150-375) k/mm3 MPV 9.9 (7.4-10.4) fl Immature Gran % (Auto) 0.2 (0-0.5) % Neut % (Auto) 58.2 (45.5-73.1) % Lymph % (Auto) 31.6 (18.3-44.2) % [place] % (Auto) 6.6 (2.6-8.5) % Eos % (Auto) 3.0 (0-4.4) % Baso % (Auto) 0.4 (0.2-1.2) % Lymph # (Auto) 2.90 (0.9-3.2) K/mm3 [place] # (Auto) 0.6 (0.1-0.6) K/mm3 Eos # (Auto) 0.3 (0-0.3) K/mm3 Baso # (Auto) 0.0 (0.0-0.1) K/mm3 Abs Immat Gran (auto) 0.02 (0.00-0.031) K/mm3 Absolute Neuts (auto) 5.3 (1.3-6.7) K/mm3 Absolute Nucleated RBC 0.000 (0.0-0.012) K/mm3 Nucleated RBC % 0.0 (0.0-0.2) % Sodium 139 (137-145) mmol/L Potassium 3.9 (3.4-5.0) mmol/L Chloride 103 (98-107) mmol/L Carbon Dioxide 25 (22-30) mmol/L Anion Gap 11 (4-12) mmol/L BUN 14 (9-20) mg/dL Creatinine 0.90 (0.7-1.3) mg/dL Estim Creat Clear Calc 151 ml/min Estimated GFR > 60 (59 - ) Glucose 96 (65-110) mg/dL Calcium 9.7 (8.4-10.2) mg/dL Total Bilirubin 0.8 (0.2-1.3) mg/dL AST 39 (17-59) U/L ALT 57 H (6-50) U/L Alkaline Phosphatase 64 (38-126) U/L Total Protein 8.0 (6.3-8.2) g/dL Albumin 4.7 (3.5-5.1) g/dL Lipase 172 (23-300) U/L <Rubialee ann Lerner, BILLING REPRESENTATIVE - Last Filed: 02/01/25 18:47> Lab Results 02/01/25 Range/Units 20:48 WBC 9.2 (4.5-10.0) K/mm3 RBC 5.38 (4.6-6.20) M/mm3 Hgb 15.7 (14.0-18.0) g/dL Hct 45.8 (42.0-52.0) % MCV 85.1 (80-100) fl MCH 29.2 (26-34) pg MCHC 34.3 (32-36) g/dl RDW 12.9 (11.5-14.5) % Plt Count 312 (150-375) k/mm3 MPV 9.9 (7.4-10.4) fl Immature Gran % (Auto) 0.2 (0-0.5) % Neut % (Auto) 58.2 (45.5-73.1) % Lymph % (Auto) 31.6 (18.3-44.2) % [place] % (Auto) 6.6 (2.6-8.5) % Eos % (Auto) 3.0 (0-4.4) % Baso % (Auto) 0.4 (0.2-1.2) % Lymph # (Auto) 2.90 (0.9-3.2) K/mm3 [place] # (Auto) 0.6 (0.1-0.6) K/mm3 Eos # (Auto) 0.3 (0-0.3) K/mm3 Baso # (Auto) 0.0 (0.0-0.1) K/mm3 Abs Immat Gran (auto) 0.02 (0.00-0.031) K/mm3 Absolute Neuts (auto) 5.3 (1.3-6.7) K/mm3 Absolute Nucleated RBC 0.000 (0.0-0.012) K/mm3 Nucleated RBC % 0.0 (0.0-0.2) % Sodium 139 (137-145) mmol/L Potassium 3.9 (3.4-5.0) mmol/L Chloride 103 (98-107) mmol/L Carbon Dioxide 25 (22-30) mmol/L Anion Gap 11 (4-12) mmol/L BUN 14 (9-20) mg/dL Creatinine 0.90 (0.7-1.3) mg/dL Estim Creat Clear Calc 151 ml/min Estimated GFR > 60 (59 - ) Glucose 96 (65-110) mg/dL Calcium 9.7 (8.4-10.2) mg/dL Total Bilirubin 0.8 (0.2-1.3) mg/dL AST 39 (17-59) U/L ALT 57 H (6-50) U/L Alkaline Phosphatase 64 (38-126) U/L Total Protein 8.0 (6.3-8.2) g/dL Albumin 4.7 (3.5-5.1) g/dL Lipase 172 (23-300) U/L <Pretty Ayala PA-C - Last Filed: 02/02/25 02:26> Imaging Data Attestation: I personally reviewed and interpreted this imaging study as follows: < Pretty Ayala PA-C - Last Filed: 02/02/25 02:26> Radiologist's impression: ITS Impressions Abdomen/Pelvis CT 02/01/25 22:07 IMPRESSION: Findings which in the appropriate clinical scenario suggest the presence of inflammatory bowel disease, versus a focal enteritis. Follow-up to resolution is recommended as is GI consultation. <Rubia Lerner APRN - Last Filed: 02/01/25 18:47> ITS Impressions Abdomen/Pelvis CT 02/01/25 22:07 IMPRESSION: Findings which in the appropriate clinical scenario suggest the presence of inflammatory bowel disease, versus a focal enteritis. Follow-up to resolution is recommended as is GI consultation. <Pretty Ayala PA-C - Last Filed: 02/02/25 02:26> Discharge Plan Discharge Clinical Impression: Enteritis, Left lower quadrant abdominal pain <Rubia Lerner APRN - Last Filed: 02/01/25 18:47> Patient Disposition: Home, Self-Care <Rubia Lerner APRN - Last Filed: 02/01/25 18:47> Condition: Stable <Rubia Lerner APRN - Last Filed: 02/01/25 18:47> Instructions: Antibiotic Form, Irritable Bowel Syndrome (ED), Constipation (ED), Enteritis (ED) <Rubia Lerner APRN - Last Filed: 02/01/25 18:47> Additional Instructions: Continue Tylenol, ibuprofen as needed for pain. Continue MiraLax/Dulcolax as needed for constipation. Increase fluid intake. Continue high-fiber diet. Follow-up with GI for further evaluation if needed. Return to the ED if you experience worsening or severe pain, unable to keep down food or drink, rectal bleeding, dark black stools, persistent fevers, difficulty urinating, or any other symptoms of concern. <Rubia Lerner APRN - Last Filed: 02/01/25 18:47> Patient Language: Luxembourger <Rubia Lerner APRN - Last Filed: 02/01/25 18:47> Prescriptions: No Action albuterol sulfate 90 mcg/actuation HFA aerosol inhaler 2 puff inhalation QID PRN (Reason: shortness of breath or wheezing) Qty: 6.7 0RF doxycycline monohydrate 100 mg tablet 100 mg PO BID Qty: 20 0RF <Rubia Lerner APRN - Last Filed: 02/01/25 18:47> Follow-up/Referrals: Neema,Matt Smiley MD [Primary Care Provider] - Jesus Kim MD [Physician] - (GI) <Rubia Lerner APRN - Last Filed: 02/01/25 18:47> Time of Disposition: 01:57 <Rubia Lerner APRN - Last Filed: 02/01/25 18:47> 01:57 <Pertty Ayala PA-C - Last Filed: 02/02/25 02:26>
[2025-02-01 20:54] LABS: Basophils Percent Auto 0.4 % (0.2-1.2); Eosinophils Absolute Auto 0.3 K/mm3 (0-0.3); Hematocrit 45.8 % (42.0-52.0); Hemoglobin 15.7 g/dL (14.0-18.0); Immature Granulocyte Absolute 0.02 K/mm3 (0.00-0.031); Immature Granulocyte Percent A 0.2 % (0-0.5); Lymphocytes Percent Auto 31.6 % (18.3-44.2); Mean Corpuscular HGB Conc 34.3 g/dl (32-36); Mean Corpuscular Hemoglobin 29.2 pg (26-34); Mean Corpuscular Volume 85.1 fl (80-100); Mean Platelet Volume 9.9 fl (7.4-10.4); Monocytes Absolute Auto 0.6 K/mm3 (0.1-0.6); Monocytes Percent Auto 6.6 % (2.6-8.5); Neutrophils Absolute Auto 5.3 K/mm3 (1.3-6.7); Neutrophils Percent Auto 58.2 % (45.5-73.1); Platelet Count Result 312 k/mm3 (150-375); Red Blood Count 5.38 M/mm3 (4.6-6.20); Red Cell Distribution Width 12.9 % (11.5-14.5); White Blood Count 9.2 K/mm3 (4.5-10.0)
[2025-02-01 21:06] LABS: Alanine Aminotransferase 57 U/L (6-50); Albumin Level 4.7 g/dL (3.5-5.1); Alkaline Phosphatase 64 U/L (38-126); Anion Gap 11 mmol/L (4-12); Aspartate Amino Transferase 39 U/L (17-59); Bilirubin,Total 0.8 mg/dL (0.2-1.3); Blood Urea Nitrogen 14 mg/dL (9-20); Calcium 9.7 mg/dL (8.4-10.2); Carbon Dioxide 25 mmol/L (22-30); Chloride 103 mmol/L (98-107); Estimated CRCL calculation 151 ml/min; Estimated Glomerular Filt Rate > 60; Glucose 96 mg/dL (65-110); Lipase 172 U/L (23-300); Potassium 3.9 mmol/L (3.4-5.0); Sodium 139 mmol/L (137-145)
[2025-02-02 00:28] VITALS: BP 131/83; PULSE 83; RESP 18; O2SAT 100
--- OUTSIDE RECORDS SUMMARY | 2025-02-02 00:38 | XMS_ITS | Clinical Summary ---
Author Organization [facility] Address [address] [place] [address] Care Team Providers Care Brush Worker Name Role Phone Unavailable Primary Care Provider Unavailabl e Source Comments [facility],non-owned Affiliates and Associated Physician Practices is amultiple site organization consisting of ambulatory clinics and hospital sitesin [place], [place], [place] and [place]. This disclosure is being madepursuant to the Care Everywhere program and may not contain all information available regarding this patient. Last updated 18.[facility] Allergies No known active allergies Medications * Be aware that medications may not be up to date on this document. Alwaysverify current medications with the patient. Medication Sig Dispensed Refills Start Date End Date Status fluticasone propionate (FLONASE) 50 MCG/ACT nasal spray [place] 2 sprays into each nostril once daily [...] 36.9 C (98.5 F) 12/29/2018 3:53 PM CORPORATE PLANNER Respiratory Rate - - Oxygen Saturation - - Inhaled Oxygen Concentration - - Weight 85.7 kg (189 lb) 12/29/2018 3:53 PM CORPORATE PLANNER Height 184.2 cm (6' 0.5 ) 05/02/2018 [...] per time) Exercise On track( 3:53 PM CORPORATE PLANNER) No Heidy Ernst RN Note: Caring for [...] Where can I go for more information? [place] [employer] ( ) www.aap.org HealthyChildren.org www.healthychildren.org U.S. Department of Health and Human Services www.hhs.gov Website and free downloadable michelle for smartphones: http://www.basestone/ Use safety retraint in car Lifestyle On track( 3:53 PM CORPORATE PLANNER) Mayi Leija MD SAL[facility] MONTEMAYOR Personal/Family [address] [place] [id number]
--- OUTSIDE RECORDS SUMMARY | 2025-02-02 00:38 | XMS_ITS | Patient Health Summary ---
Author Organization [facility] Address [address] [place] [address] Care Team Providers Care [place] Name Role Phone Unavailable Primary Care Provider Unavailabl e Note from [facility],non-owned Affiliates and Associated Physician Practices is amultiple site organization consisting of ambulatory clinics and hospital sitesin [place], [place], [place] and [place]. This disclosure is being madepursuant to the Care Everywhere program and may not contain all information available regarding this patient. Last updated 18.[facility] Allergies No known active allergies Medications * Be aware that medications may not be up to date on this document. Alwaysverify current medications with the patient. * fluticasone propionate (FLONASE) 50 MCG/ACT nasal spray(Started 05/12/2018) [place] 2 sprays into each nostril once daily [...] 36.9 C (98.5 F) 12/29/2018 3:53 PM HARDSCAPE FOREMAN Respiratory Rate - - Oxygen Saturation - - Inhaled Oxygen Concentration - - Weight 85.7 kg (189 lb) 12/29/2018 3:53 PM HARDSCAPE FOREMAN Height 184.2 cm (6' 0.5 ) 05/02/2018 [...] interval REPORT COMMENT: FASTING:YES Test Performed at: [facility] [id number] MONIQUE ANDRADE DO,MPH Blood specimen (specimen) BLOOD SPECIMEN / Unknown 06/11/2015 9:42 AM CDT 06/11/2015 9:42 AM CDT Mayi Tellez MD LAB - CHEMISTRY MICHAEL BROTHERS [facility] Organization Address City/State/ZIP Co de Phone Number [facility] [address] [place] [address] * LIPID PROFILE (LIPID PANEL) (06/11/2015 9:42 AM CDT) Cholesterol 144 125 - 170 mg/dL [facility] Comment: Test Performed at: [id number] [id number] MONIQUE ANDRADE DO,MPH HDL Cholesterol 46 38 [...] - CHEMISTRY MICHAEL BROTHERS Performing Organization Address [facility] Co de Phone Number [facility] [phone] [place] [address] * TSH (01/09/2009 10:41 AM HARDSCAPE FOREMAN) TSH 1.22 0.50 - 4.30 mIU/L [facility] Comment: Test Performed at: [facility] [id number] MONIQUE MISTRY MD 01/09/2009 10:4 1 AM HARDSCAPE FOREMAN 01/09/2009 10:06 PM HARDSCAPE FOREMAN Mayi Tellez MD LAB - CHEMISTRY MICHAEL BROTHERS Performing Organization Address [facility] Co de Phone Number [facility] [id number] [place] [address] * T4 FREE (01/09/2009 10:41 AM HARDSCAPE FOREMAN) T4 Free 1.3 0.9 - 1.6 ng/dL [facility] Comment: Test Performed at: [facility] [id number] MONIQUE MISTRY MD 01/09/2009 10:4 1 AM HARDSCAPE FOREMAN 01/09/2009 10:06 PM HARDSCAPE FOREMAN Mayi Tellez MD LAB - CHEMISTRY [facility]HAEL BROTHERS Performing Organization Address [facility] Co de Phone Number [facility] [phone] [place] [address]
--- OUTSIDE RECORDS SUMMARY | 2025-02-02 00:38 | XMS_ITS | Referral Summary ---
Author Organization [facility] Address [address] [place] [address] Care Team Providers Care Sales Planning Analyst Name Role Phone Unavailable Primary Care Provider Unavailabl e Source Comments [facility],non-owned Affiliates and Associated Physician Practices is amultiple site organization consisting of ambulatory clinics and hospital sitesin [place], [place], [place] and [place]. This disclosure is being madepursuant to the Care Everywhere program and may not contain all information available regarding this patient. Last updated 18.[facility] Allergies No known active allergies Medications * Be aware that medications may not be up to date on this document. Alwaysverify current medications with the patient. Medication Sig Dispensed Refills Start Date End Date Status fluticasone propionate (FLONASE) 50 MCG/ACT nasal spray [place] 2 sprays into each nostril once daily [...] 36.9 C (98.5 F) 12/29/2018 3:53 PM CLAIMS MANAGER Respiratory Rate - - Oxygen Saturation - - Inhaled Oxygen Concentration - - Weight 85.7 kg (189 lb) 12/29/2018 3:53 PM CLAIMS MANAGER Height 184.2 cm (6' 0.5 ) 05/02/2018 3:35 PM CDT Body Mass Index - - Plan of Treatment Not on file Goals Goal Patient Goal Type Associated Problems Recent Progress Patient-Stated? Author Exercise 3X per week (30 min per time) Exercise On track( 019 3:53 PM CLAIMS MANAGER) Heidy Champion, RN Note: Caring for Your [...] Where can I go for more information? [employer] ( ) www.aap.org HealthyChildren.org www.healthychildren.org U.S. Department of Health and Human Services www.hhs.gov Website and free downloadable michelle for smartphones: http://www.[employer]/ Use safety retraint in car Lifestyle On track( 019 3:53 PM CLAIMS MANAGER) No Mayi Tellez MD Administered Medications SALAS MONTEMAYOR Personal/Family [address] [place] [address] [place] [address]
--- OUTSIDE RECORDS SUMMARY | 2025-02-02 00:38 | XMS_ITS | Patient Health Record ---
Author Organization [facility] Address [address] [place], [place] [id number] Care Team Providers Care Refractory Tile Helper Name Role Phone BHARAT MCCORMICK Unavailable [phone] Matt Bethea Unavailable Unavailable Allergies No Known [...] Insured Coverage Start Date Coverage End Date [place] [employer] [facility] [address] [address] [place], [place] [id number] CEZAR BELLO Self - patient is the insured Medical (General) History Medical History History ICD Code acid reflux GERD
--- OUTSIDE RECORDS SUMMARY | 2025-02-02 00:39 | XMS_ITS | Clinical Summary ---
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 Gender Identity Not on file Sexual Orientation Not on file Last Filed Vital Signs Vital Sign Reading Time Taken Comments Blood Pressure 124/76 11/16/2021 1:35 PM SENIOR AUDIT MANAGER Pulse 70 11/16/2021 1:35 PM SENIOR AUDIT MANAGER Temperature 36.9 C (98.4 F) 11/16/2021 1:35 PM SENIOR AUDIT MANAGER Respiratory Rate 16 11/16/2021 1:35 PM SENIOR AUDIT MANAGER Oxygen Saturation 98% 11/16/2021 1:35 PM SENIOR AUDIT MANAGER Inhaled Oxygen Concentration - - Weight 115.2 kg (254 lb) 11/16/2021 1:35 PM SENIOR AUDIT MANAGER Height 185.4 cm (6' 1 ) 11/16/2021 1:35 PM SENIOR AUDIT MANAGER Body Mass Index 33.51 11/16/2021 1:35 PM SENIOR AUDIT MANAGER Plan of Treatment Health Maintenance Due Date Last Done Comments HPV Vaccines (1 - Male 3-dose series) 2015 Hepatitis C 2018 Annual Physical 03/10/2022 03/10/2021 DTaP, Tdap and Td Vaccines (7 - Td or Tdap) 05/04/2022 05/04/2012, 03/03/2006, 06/11/2002, Additional history exists COVID-19 Vaccine (3 - season) 2024 04/10/2021, 2020 Influenza Adult (#1) 2024 09/19/2008 PHQ-2 (Physician [place]) 11/28/2024 Hepatitis B Vaccines Completed 09/12/2001, 01/12/2001, [...] to complete this topic Insurance Care Teams Loin Puller Relationship Specialty Start Date End Date Matt Bethea MD [address] [place] [id number] PCP - General INTERNAL MEDICINE 03/10/21
[2025-02-02 02:04] VITALS: BP 141/86; PULSE 69; RESP 18; O2SAT 99
== END 2025-02-02 02:05 | disposition home or self-care (01) ==
PROVIDERS: Registered Nurse; Emergency Provider Physician Assistant; PCP Internal Medicine
DX: K52.9 Noninfective gastroenteritis and colitis, unspecified (principal); R10.32 Left lower quadrant pain; R93.3 Abnormal findings on diagnostic imaging of other parts of digestive tract
CPT/HCPCS: 36415; 74177; 80053; 83690; 85025; 99284; Q9967